=== PATIENT | female | born 1950 | race Caucasian/White ===

== ENCOUNTER 2018-02-14 20:05 | Emergency (ER) | payer MEDICARE ==
[~2018-02-14] VITALS: Ht 165.1 cm; Wt 133.8 kg
--- NOTE | 2018-02-14 21:45 | Diagnostic Imaging Report ---
KNEE LEFT THREE VIEWS HISTORY: Knee pain COMPARISON: None FINDINGS: Bones: No displaced fracture. Prominence of the medial femoral condyle margin suggests prior MCL injury Osseous alignment is within normal limits. Joints: Moderate to severe degenerative changes involving the 3 compartments with medial and femoral patellar predominance demonstrated by joint space narrowing, subchondral sclerosis and marginal osteophyte formation Soft tissues: The soft tissues appear unremarkable. IMPRESSION: 1. Tricompartmental degenerative joint disease. 2. No acute osseous abnormalities Signed by: Dr. Ranjan Velazquez M.D. on 02/14/2018 9:41 PM
[2018-02-14 22:08] VITALS: BP 162/84
== END 2018-02-14 22:23 | disposition home or self-care (01) ==
LOC: ER 20:05
DX: S83.412A Sprain of medial collateral ligament of left knee, initial encounter (principal); M25.462 Effusion, left knee; X50.1XXA Overexertion from prolonged static or awkward postures, initial encounter; Y92.008 Other place in unspecified non-institutional (private) residence as the place of occurrence of the external cause; I10 Essential (primary) hypertension; K21.9 Gastro-esophageal reflux disease without esophagitis
CPT/HCPCS: 99283

== ENCOUNTER 2018-05-29 17:21 | Emergency (ER) | payer MEDICARE ==
[~2018-05-29] VITALS: Ht 165.1 cm; Wt 133.8 kg
--- NOTE | 2018-05-29 18:22 | Diagnostic Imaging Report ---
Exam: Right foot 3 views History: Pain Comparison: None. Findings: No fracture. Hallux valgus. Joint spaces preserved. No abnormal soft tissue calcification or soft tissue defect. Impression: No acute osseous abnormality Signed by: Dr. Adilson Finney M.D. on 05/29/2018 6:19 PM
[2018-05-29] MEDS ORDERED: ULTRAM50 MG PO (18:34)
--- OUTSIDE RECORDS SUMMARY | 2018-06-04 12:49 | XMS REPORT | CCD ---
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
--- OUTSIDE RECORDS SUMMARY | 2018-06-04 12:49 | XMS REPORT | CCD ---
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
--- OUTSIDE RECORDS SUMMARY | 2018-06-04 12:49 | XMS REPORT | Summary of Care ---
Author Author [facility] [place] Organization [facility] [place] Address Unknown Phone Unavailable Encounter [employer] En[employer]tr_tiki(FIN) [id number] Date(s): 08/09/15 - 08/09/15 [facility] [place] [address] [address]- [facility] [phone] Discharge Disposition: Home Attending Physician: Marifer Barragan DO Vital Signs No data available for this section Problem List No data available for this section Allergies, Adverse Reactions, Alerts Substance Reaction Severity Status Bactrim Active Biaxin Active NKFA Active Medications No data available for this section Results No data available for this section Immunizations No data available for this section Procedures No data available for this section Social History No data available for this section Assessment and Plan No data available for this section
--- OUTSIDE RECORDS SUMMARY | 2018-06-04 12:49 | XMS REPORT | Summary of Care ---
Author Organization Unknown Address Unknown Phone Unavailable Encounter [employer] Encntr_[id number](FIN) [id number] Date(s): 02/23/15 - 02/23/[address] [address]- Discharge Disposition: Home Physician Attending: Geronimo Nguyen MD Physician Admitting: Geronimo Nguyen MD Vital Signs No data available for this [...]
--- OUTSIDE RECORDS SUMMARY | 2018-06-04 12:49 | XMS REPORT | Continuity of Care Document ---
Author Author [facility] Interface Address Unknown Phone Unavailable Problems Problem Status Onset Date Classification Date Reported Comments Source LEFT KNEE PAIN Active 08/20/2000 [facility] LEFT WRIST PAIN Active 08/20/2000 [facility] BILATERAL KNEE PAIN Active 08/20/2000 [facility] Final: Encounter for screening mammogram for malignant neoplasm of breast 03/09/2017 [facility] Hyperlipidemia, unspecified Active Problem 04/02/2018 [facility] Essential hypertension Active Problem 04/02/2018 [facility] Esophageal reflux Active Problem 04/02/2018 [facility] BMI 50.0-59.9, adult Active Problem 04/02/2018 [facility] 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 Active Problem 04/02/2018 [facility] BMI 45.0-49.9, adult Active Problem 04/02/2018 [facility] Prediabetes Active Problem 04/02/2018 [facility] Family history of colon cancer Active Problem 04/02/2018 [facility] Arthritis of both knees Active Problem 04/02/2018 [facility] OAB Active Problem 04/02/2018 [facility] Intertrigo Active Diagnosis 12/29/2016 [facility] Encounter for screening mammogram for malignant neoplasm of breast Active Diagnosis 12/29/2016 [facility] Special screening for malignant neoplasms, colon Active Diagnosis 12/29/2016 [facility] Insect bite of unspecified finger, initial encounter Active Diagnosis 03/11/2018 [facility] Bitten or stung by nonvenomous insect and other nonvenomous arthropods, initial encounter Active Diagnosis 03/11/2018 [facility] Local infection of the skin and subcutaneous tissue, unspecified Active Diagnosis 03/11/2018 [facility] Asymptomatic menopausal state Active Diagnosis 03/11/2018 [facility] Routine general medical examination at a health care facility Active Diagnosis 03/11/2018 [facility] Lower respiratory infection Active Diagnosis 11/17/2016 [facility] SOB Active Diagnosis 11/17/2016 [facility] Cough Active Diagnosis 11/17/2016 [facility] HTN Active Problem 10/13/2015 [facility] GERD Active Problem 10/13/2015 [facility] OAB Active Problem 10/13/2015 [facility] Knee pain Active Diagnosis 06/07/2013 [facility] Family hx of colon cancer Active Problem 10/13/2015 [facility] Routine general medical examination at a health care facility Active Diagnosis 09/03/2014 [facility] Morbid obesity Active Problem 10/13/2015 [facility] Adult body mass index 50.0-59.9 Active Problem 10/13/2015 [facility] Hyperlipidemia Active Problem 10/13/2015 [facility] Prediabetes Active Problem 10/13/2015 [facility] Yeast infection Active Diagnosis 10/13/2015 [facility] URI Active Diagnosis 10/08/2015 [facility] Chest pain Active Diagnosis 10/08/2015 [facility] Shingles Active Diagnosis 02/03/2016 [facility] Arthritis of knee Active Diagnosis 02/03/2016 [facility] Body aches Active Diagnosis 07/28/2016 [facility] Acute URI Active Diagnosis 07/28/2016 [facility] Medications Medication Details Route Status Patient Instructions Ordering Provider Order Date Source Keflex 1 capsule Orally Active 500 mg Orally every 12 hrs Tay Marinelli 03/05/2018 [facility] Nystatin 1 application to affected area Externally Active 495891 UNIT/GM Externally Twice a day El 12/27/2016 [facility] Tramadol HCl 1 tablet Orally Active 50 mg Orally once a day prn El 11/15/2016 [facility] Tramadol HCl as directed Orally Active 50 MG Orally once a day prn El 11/15/2016 [facility] ProAir HFA 2 puffs as needed Inhalation Active 108 (90 Base) MCG/ACT Inhalation every 4 hrs prn El 11/15/[address] [facility] Medrol (Deshawn) as directed Orally Active 4 MG Orally as directed Teri 11/15/[address] [facility] Bromfed DM 10 ml as needed Orally Active 30-2-10 MG/5ML Orally every 6 hrs prn Teri 11/15/[address] [facility] Levaquin 1 tablet Orally Active 500 MG Orally Once a day Teri 11/15/[address] [facility] Bromfed DM 10 ml as needed Orally Active 30-2-10 MG/5ML Orally every 6 hrs prn Teri 07/26/[address] [facility] Augmentin 1 tablet Orally Active 875-125 MG Orally twice a day Teri 07/26/[address] [facility] Tramadol HCl 1 tablet as needed Externally Active 50 mg Externally daily PRN [place] 04/30/[address] [facility] Valtrex 1 tablet Orally Active 1 GM Orally three times a day (tid) El 01/31/[address] [facility] Diflucan 1 tablet Orally Active 150 MG Orally Once a day [place] 10/12/[address] [facility] Bromfed DM 10 ml as needed Orally Active 30-2-10 MG/5ML Orally every 6 hrs [facility] 10/05/[address] [facility] Vitamin D (Ergocalciferol) 1 capsule by mouth Active 11585 UNIT by mouth once per week El 09/14/[address] [facility] Atenolol 1 tablet Orally Active 50MG Orally Once a day Tay Marinelli [facility] Omeprazole 1 capsule by mouth Active 40MG by mouth once a day Tay Marinelli [facility] Myrbetriq 1 tablet Orally Active 50 MG Orally as needed (prn) El [facility] Aspirin 1 tablet Orally Active 81 MG Orally Once a day El [facility] Oxybutynin Chloride ER as directed Orally Active 15 MG Orally twice a day (bid) El [facility] Apple Aj Vn-Grn Tea-Bit Or-Cr not defined Orally Active Orally Tay Marinelli [facility] Garcinia Cambogia-Chromium not defined Orally Active 500-200 MG-MCG Orally El [facility] Spironolactone-HCTZ 1 tablet Orally Active 25-25 MG Orally Once a day El [facility] Atenolol 1 tablet Orally Active 50MG Orally Once a day El [facility] Potassium 1 tablet Orally Active 99 MG Orally Once a day El [facility] Acetaminophen 1 tablet as needed NA Active 650 El [facility] Nitrofurantoin Monohyd Macro 1 capsule with food Orally Active 100 mg Orally once a day El [facility] Aleve 1 tablet as needed Orally Active 220 MG Orally every 12 hrs El [facility] Nitrofurantoin Monohyd Macro 1 capsule with food Orally Active 100 mg Orally once a day Tay Marinelli [facility] Potassium 1 tablet Orally Active 99 MG Orally Once a day Tay Marinelli [facility] Myrbetriq 1 tablet Orally Active 50 MG Orally as needed (prn) Tay Marinelli [facility] Aspirin 1 tablet Orally Active 81 MG Orally Once a day Tay Marinelli [facility] Acetaminophen 1 tablet as needed NA Active 650 Tay Marinelli [facility] Spironolactone-HCTZ 1 tablet Orally Active 25-25 MG Orally Once a day Tay Marinelli [facility] Aleve 1 tablet as needed Orally Active 220 MG Orally every 12 hrs Tay Marinelli [facility] Oxybutynin Chloride ER as directed Orally Active 15 MG Orally twice a day (bid) Tay Marinelli [facility] Garcinia Cambogia-Chromium not defined Orally Active 500-200 MG-MCG Orally Tay Marinelli [facility] Atenolol 1 tablet Orally Active 50 mg Orally Once a day El [facility] Tramadol HCl 1 tablet as needed Externally Active 50 mg Externally [facility] Omeprazole TAKE 1 CAPSULE DAILY NA Active 40MG El [facility] Myrbetriq Unknown Orally Active 50 MG Orally El [facility] Omeprazole 1 capsule Orally Active 40 mg Orally Once a day [facility] Myrbetriq 1 tablet Orally Active 50 MG Orally as needed (prn) Teri [facility] Allergies, Adverse Reactions, Alerts Substance Category Reaction Severity Reaction type Status Date Reported Comments Source penicillin Adverse Reaction Info Not Available Adverse Reaction Active 01/31/2016 [facility] Bactrim Adverse Reaction Info Not Available Adverse Reaction Active 03/05/2018 [facility] Biaxin Adverse Reaction Info Not Available Adverse Reaction Active 03/05/2018 [facility] Augmentin Adverse Reaction Info Not Available Adverse Reaction Active 03/05/2018 [facility] NKFA Assertion Drug allergy Active [facility] Immunizations Immunization Date Given Site Status Last Updated Comments Source Results Order Name Results Value Reference Range Date Interpretation Comments Source Breast Mammo Scrn [place] incl CAD MA Breast Mammo Scrn [place] incl CAD MA - BREAST MAMMO SCRN [place] INCL CAD MA BILATERAL DIGITAL SCREENING MAMMOGRAM WITH CAD: 03/06/2017 CLINICAL: Screening/Z12.31. Current study was evaluated with a Computer Aided Detection (CAD) system. Comparison is made to exams dated: 08/09/2015 mammogram - [facility] and 04/29/2010 mammogram. The tissue of both breasts is almost entirely fat. There are benign scattered calcifications in both breasts. No significant masses, calcifications, or other findings are seen in either breast. There has been no significant interval change. IMPRESSION: BENIGN There is no mammographic evidence of malignancy. A 1 year screening mammogram is recommended. Professional services are provided by the [facility]. Uvaldo ley/alfonso:03/06/2017 10:55:05 Hogshead Stripper: Laverne Hansen, [facility] This exam was dictated and interpreted by [id number] for Laly Kay. letter sent: Normal exam Mammogram BI-RADS: 2 Benign 03/06/2017 - - Read by: Uvaldo Del Toro MD Dictated Date/time: 03/06/17 10:55 Electronically Signed by: Uvaldo Del Toro MD 03/06/17 10:55 FINAL REPORT VIKKITony Sabino Digital Mammo Screening [place] MA Digital Mammo Screening [place] MA - DIGITAL MAMMO SCREENING [place] MA BILATERAL DIGITAL SCREENING MAMMOGRAM WITH CAD: 08/09/2015 CLINICAL: Routine. Current study was evaluated with a Computer Aided Detection (CAD) system. Comparison is made to exam dated: 04/29/2010 mammogram. The tissue of both breasts is almost entirely fat. There are benign scattered calcifications in both breasts. No significant masses, calcifications, or other findings are seen in either breast. There has been no significant interval change. IMPRESSION: BENIGN There is no mammographic evidence of malignancy. A 1 year screening mammogram is recommended. Manuel Trujillo M.D. cm/penrad:08/09/2015 11:28:15 Hogshead Stripper: Calista Diaz [facility] This exam was dictated and interpreted by [id number] for Sabino. letter sent: Normal exam Mammogram BI-RADS: 2 Benign 08/09/2015 - - Read by: Rocky Padilla MD Dictated Date/time: 08/09/15 11:28 Electronically Signed by: Rocky Padilla MD 08/09/15 11:28 FINAL REPORT [facility] Knee 3 Views Bilateral DX Knee 3 Views Bilateral DX Clinical history: Knee pain. Sex: F. : 1950. Technique: 3 views of the bilateral knees. Findings: Right knee: Indwelling Knee arthroplasty. Normal periprosthetic bone. There is no fracture or dislocation. No destructive lesion. Left knee: The knee joint is severely narrowed medially with apposition of subchondral cortical bone. Medial and lateral osteophyte. The patellofemoral joint is mildly narrowed with marginal osteophyte. There is no articular effusion. There is no fracture or dislocation. No destructive lesion. Impression: 1. Right knee arthroplasty. 2. Severe left knee arthrosis. 02/23/2015 - - Read by: Brody Verduzco MD Dictated Date/time: 02/23/15 14:37 Electronically Signed by: Brody Verduzco MD 02/23/15 14:38 FINAL REPORT [facility] Vital Signs Vital Sign Value Date Comments Source Weight 297 03/05/2018 [facility] Height 65 03/05/2018 [facility] Heart Rate 78 03/05/2018 [facility] Diastolic (mm Hg) 76 03/05/2018 [facility] Systolic (mm Hg) 122 03/05/2018 [facility] Weight 311 12/27/2016 [facility] Height 65 12/27/2016 [facility] Heart Rate 61 12/27/2016 [facility] Diastolic (mm Hg) 72 12/27/2016 [facility] Systolic (mm Hg) 108 12/27/2016 [facility] Weight 306 11/15/2016 [facility] Height 65 11/15/2016 [facility] Heart Rate 70 11/15/2016 [facility] Diastolic (mm Hg) 72 11/15/2016 [facility] Systolic (mm Hg) 104 11/15/2016 [facility] Weight 303 07/26/2016 [facility] Height 65 07/26/2016 [facility] Temperature Oral (F) 99.3 F 07/26/2016 [facility] Heart Rate 79 07/26/2016 [facility] Diastolic (mm Hg) 70 07/26/2016 [facility] Systolic (mm Hg) 124 07/26/2016 [facility] Weight 307 01/31/2016 [facility] Height 65 01/31/2016 [facility] Heart Rate 67 01/31/2016 [facility] Diastolic (mm Hg) 74 01/31/2016 [facility] Systolic (mm Hg) 124 01/31/2016 [facility] Weight 301 10/05/2015 [facility] Height 65 10/05/2015 [facility] Temperature Oral (F) 98.6 F 10/05/2015 [facility] Heart Rate 68 10/05/2015 [facility] Diastolic (mm Hg) 70 10/05/2015 [facility] Systolic (mm Hg) 108 10/05/2015 [facility] Weight 316.6 09/01/2014 [facility] Height 65 09/01/2014 [facility] Heart Rate 64 09/01/2014 [facility] Diastolic (mm Hg) 80 09/01/2014 [facility] Systolic (mm Hg) 132 09/01/2014 [facility] Weight 292 04/28/2013 [facility] Height 65 04/28/2013 [facility] Heart Rate 68 04/28/2013 [facility] Diastolic (mm Hg) 82 04/28/2013 [facility] Systolic (mm Hg) 126 04/28/2013 [facility] Encounters Location Location Details Encounter Type Encounter Number Reason For Visit Attending Provider ADM Date DC Date Status Source [facility] Outpatient [id number] LEFT WRIST PAIN [place] OSBORN 12/25/2011 Active [facility] [id number] LEFT KNEE PAIN [place] OSBORN 03/22/2012 Active [facility] MEDS [id number] 04/28/2013 04/28/2013 [facility] MEDS [id number] 04/28/2013 04/28/2013 [facility] MEDS [id number] 04/28/2013 04/28/2013 [facility] MEDS [id number] 04/28/2013 04/28/2013 [facility] MEDS [id number] 04/28/2013 04/28/2013 [facility] MEDS [id number] 04/28/2013 04/28/2013 [facility] MEDS [id number] 04/28/2013 04/28/2013 [facility] MEDS [id number] 04/28/2013 04/28/2013 [facility] MEDS [id number] 04/28/2013 04/28/[address] [facility] MEDS [id number] 04/28/2013 04/28/2013 [facility] MEDS [id number] 04/28/2013 04/28/2013 [facility] MEDS [id number] 04/28/2013 04/28/2013 [facility] prescription [id number] 05/05/2013 05/05/2013 [facility] prescription [id number] 05/05/2013 05/05/2013 [facility] prescription [id number] 05/05/2013 05/05/[address] [facility] prescription [id number] 05/05/2013 05/05/2013 [facility] prescription [id number] 05/05/2013 05/05/[address] [facility] prescription [id number] 05/05/2013 05/05/2013 [facility] prescription [id number] 05/05/2013 05/05/2013 [facility] prescription [id number] 05/05/2013 05/05/2013 [facility] prescription [id number] 05/05/2013 05/05/2013 [facility] prescription [id number] 05/05/2013 05/05/2013 [facility] prescription [id number] 05/05/2013 05/05/2013 [facility] prescription [id number] 05/05/2013 05/05/2013 [facility] prescription [id number] 05/05/2013 05/05/2013 [facility] Unknown [id number] 07/28/2014 07/28/2014 [facility] Unknown [id number] 07/28/2014 07/28/2014 [facility] Unknown [id number] 07/28/2014 07/28/2014 [facility] Unknown [id number] 07/28/2014 07/28/2014 [facility] Unknown [id number] 07/28/2014 07/28/2014 [facility] Unknown [id number] 07/28/2014 07/28/2014 [facility] Unknown [id number] 07/28/2014 07/28/2014 [facility] Unknown [id number] 07/28/2014 07/28/2014 [facility] Unknown [id number] 07/28/2014 07/28/2014 [facility] Unknown [id number] 07/28/2014 07/28/2014 [facility] Unknown [id number] 07/28/2014 07/28/2014 [facility] Phys/FBW [id number] 09/01/2014 09/01/2014 [facility] Phys/FBW [id number] 09/01/2014 09/01/2014 [facility] Phys/FBW [id number] 09/01/2014 09/01/2014 [facility] Phys/FB [id number] 09/01/2014 09/01/2014 [facility] Phys/FB [id number] 09/01/2014 09/01/2014 [facility] Phys/FB [id number] 09/01/2014 09/01/2014 [facility] Phys/FB [id number] 09/01/2014 09/01/2014 [facility] Phys/FB [id number] 09/01/2014 09/01/2014 [facility] Phys/FB [id number] 09/01/2014 09/01/2014 [facility] Phys/FB [id number] 09/01/2014 09/01/2014 [facility] Test Results [id number] 09/14/2014 09/14/2014 [facility] Test Results [id number] 09/14/2014 09/14/2014 [facility] Test Results [id number] 09/14/2014 09/14/2014 [facility] Test Results [id number] 09/14/2014 09/14/2014 [facility] Test Results [id number] 09/14/2014 09/14/2014 [facility] Test Results [id number] 09/14/2014 09/14/2014 [facility] Test Results [id number] 09/14/2014 09/14/2014 [facility] Test Results [id number] 09/14/2014 09/14/2014 [facility] Test Results [id number] 09/14/2014 09/14/2014 [facility] Outpatient [id number] Palmira Osborn 02/23/2015 02/24/2015 [facility] spots on legs [id number] 05/28/2015 05/28/2015 [facility] spots on legs [id number] 05/28/2015 05/28/2015 [facility] spots on legs [id number] 05/28/2015 05/28/2015 [facility] spots on legs [id number] 05/28/2015 05/28/2015 [facility] spots on legs [id number] 05/28/2015 05/28/2015 [facility] spots on legs [id number] 05/28/2015 05/28/2015 [facility] spots on legs [id number] 05/28/2015 05/28/2015 [facility] spots on legs [id number] 05/28/2015 05/28/2015 [facility] [place] Out[facility] Di[facility] [id number] Marifer CrossE[facility] 08/09/2015 08/10/2015 [facility] [place] [facility] Unknown [id number] 09/24/2015 09/24/2015 [facility] Unknown [id number] 09/24/2015 09/24/2015 [facility] Unknown [id number] 09/24/2015 09/24/2015 [facility] Unknown [id number] 09/24/2015 09/24/2015 [facility] Unknown [id number] 09/24/2015 09/24/2015 [facility] Unknown [id number] 09/24/2015 09/24/2015 [facility] Unknown [id number] 09/24/2015 09/24/2015 [facility] Unknown [id number] 09/24/2015 09/24/2015 [facility] URI [id number] 10/05/2015 10/05/2015 [facility] URI [id number] 10/05/2015 10/05/2015 [facility] URI [id number] 10/05/2015 10/05/2015 [facility] URI [id number] 10/05/2015 10/05/2015 [facility] URI [id number] 10/05/2015 10/05/2015 [facility] URI [id number] 10/05/2015 10/05/2015 [facility] URI [id number] 10/05/2015 10/05/2015 [facility] Consultation [id number] 10/12/2015 10/12/[address] [facility] Consultation [id number] 10/12/2015 10/12/2015 [facility] Consultation [id number] 10/12/2015 10/12/[address] [facility] Consultation [id number] 10/12/2015 10/12/[address] [facility] Consultation [id number] 10/12/2015 10/12/2015 [facility] [id number] 10/12/2015 10/12/2015 [facility] POSSIBLE RASH UNDER R BREAST, PAINFUL TO TOUCH, ITCHY AND A SLIGHT LUMP. [id number] 01/31/2016 01/31/2016 [facility] POSSIBLE RASH UNDER R BREAST, PAINFUL TO TOUCH, ITCHY AND A SLIGHT LUMP. [id number] 01/31/2016 01/31/2016 [facility] POSSIBLE RASH UNDER R BREAST, PAINFUL TO TOUCH, ITCHY AND A SLIGHT LUMP. [id number] 01/31/2016 01/31/2016 [facility] POSSIBLE RASH UNDER R BREAST, PAINFUL TO TOUCH, ITCHY AND A SLIGHT LUMP. [id number] 01/31/2016 01/31/2016 [facility] POSSIBLE RASH UNDER R BREAST, PAINFUL TO TOUCH, ITCHY AND A SLIGHT LUMP. [id number] 01/31/2016 01/31/[address] [facility] Unknown [id number] 02/29/2016 02/29/[address] [facility] Unknown [id number] 02/29/2016 02/29/[address] [facility] Unknown [id number] 02/29/2016 02/29/[address] [facility] Unknown [id number] 02/29/2016 02/29/[address] [facility] Sore throat, cough, body aches [id number] 07/26/2016 07/26/[address] [facility] Sore throat, cough, body aches [id number] 07/26/2016 07/26/[address] [facility] Sore throat, cough, body aches [id number] 07/26/2016 07/26/[address] [facility] Unknown [id number] 07/29/2016 07/29/[address] [facility] Unknown [id number] 07/29/2016 07/29/2016 [facility] Needs call back from Medical Staff [id number] 08/03/2016 08/03/2016 [facility] [place] Out[facility] Di[facility] [id number] Marifer Barragan 03/06/2017 03/07/2017 [facility] [place] Procedures Procedure Code Date Perfomer Comments Source
--- OUTSIDE RECORDS SUMMARY | 2018-06-04 12:49 | XMS REPORT | Summary of Care ---
Author Author [facility] [place] Organization [facility] [place] Address Unknown Phone Unavailable Encounter HQ Encntr_alibhavna(FIN) [id number] Date(s): 03/06/17 - 03/06/17 [facility] [place] [address] [id number] [phone] Final: Encounter for screening mammogram for malignant neoplasm of breast Discharge Disposition: Home or Self Care Attending Physician: Marifer Barragan DO Vital Signs [...]
--- OUTSIDE RECORDS SUMMARY | 2018-06-04 12:50 | XMS REPORT ---
Author Author Maeve Williamson [facility] eClinicalWorks Address Unknown Phone Unavailable Care Team Providers Care Angle Bender Name Role Phone Maeve Williamson Unavailable Encounters Encounter Location Date Phys/FBW [facility] Sep 01, [address] [facility] Sep 14, [address] [facility] May 28, [address] [facility] Sep 24, [address] [facility] May 05, [address] [facility] Apr 28, [address] [facility] Jul 28, 2014 POSSIBLE RASH UNDER R BREAST, PAINFUL TO TOUCH, ITCHY AND A SLIGHT LUMP. [facility] January 31, [address] [facility] Oct 05, [address] [facility] Oct 12, [address] [facility] Jul 29, 2016 Needs call back from Medical Staff [facility] Aug 03, [address] [facility] February 29, 2016 Sore throat, cough, body aches [facility] Jul 26, 2016 Problems Problem Type Condition ICD-9 Code Onset Dates Condition Status Problem Prediabetes R73.09 Active Problem Family history of colon cancer Z80.0 Active Problem OAB (overactive bladder) N32.81 Active Problem Hyperlipidemia, unspecified E78.5 Active Problem Essential hypertension I10 Active Problem Esophageal reflux K21.9 Active Social History Social History Element Qualifiers Date Reported Occupation: employed. [employer], [employer] Jul 26, 2016 children . None Jul 26, 2016 Ethnicity . Status , Is somali your primary language? Yes Jul 26, 2016 Tobacco Use: . Are you a: never smoker Jul 26, 2016 Last Colonoscopy: . 2007Jul 26, 2016 Use of recreational / street drugs? . Answer: No Jul 26, 2016 Do you have pets? . Status: No Jul 26, 2016 Where or with whom do you live ? . with spouse Jul 26, 2016 Last Bone Density: . yes Jul 26, 2016 Marital Status: . Jose L Ramirez Jul 26, 2016 Caffeine intake? . Status: Yes Jul 26, 2016 Do you exercise? . Answer: No Jul 26, 2016 Flu Vaccine: . Refuse Jul 26, 2016 Depression Screening: . negative Jul 26, 2016 Do you drink alcohol? . Status: No Jul 26, 2016 Summary Purpose eClinicalWorks Submission
--- OUTSIDE RECORDS SUMMARY | 2018-06-04 12:50 | XMS REPORT ---
Author Author Sampson Gallegos Organization eClinicalWorks Address Unknown Phone Unavailable Care Team Providers Care Medical Front Desk Coordinator Name Role Phone Sampson Gallegos CP Unavailable Allergies, Adverse Reactions, Alerts Substance Reaction Event Type penicillin Info Not Available Drug Allergy Biaxin Info Not Available Drug Allergy Bactrim Info Not Available Drug Allergy Encounters Encounter Location Date prescription [facility] May 05, [address] [facility] Apr 28, 2013 Problems Problem Type Condition ICD-9 Code Onset Dates Condition Status Problem HTN (hypertension) 401.9 Active Problem GERD (gastroesophageal reflux disease) 530.81 Active Problem OAB (overactive bladder) 596.51 Active Assessment Knee pain 719.46 Active Assessment HTN (hypertension) 401.9 Active Assessment GERD (gastroesophageal reflux disease) 530.81 Active Medications Medication Code System Code Instructions Start Date End Date Status Dosage Tramadol HCl [facility] [address]-73 50 mg Orally every 6 hrs Active 1 tablet as needed Aspirin [facility] [address]-34 81 MG Orally Once a day Active 1 tablet Nitrofurantoin Monohyd Macro [facility] [address]-97 100 mg Orally once a day Active 1 capsule with food Oxybutynin Chloride ER [facility] [address]-59 15 MG Orally twice a day (bid) Active as directed Omeprazole [facility] [address]-05 40MG Active TAKE 1 CAPSULE DAILY Aleve [facility] [address]-26 220 MG Orally every 12 hrs Active 1 tablet as needed Atenolol [facility] [address]-54 50 MG Orally Once a day Active 1 tablet Social History Social History Element Qualifiers Date Reported Ethnicity . Status , Is rwandan your primary language? Yes Apr 28, 2013 Where or with whom do you live ? . with spouse Apr 28, 2013 children . None Apr 28, 2013 Tobacco Use: . Are you a: never smoker Apr 28, 2013 Use of recreational / street drugs? . Answer: No Apr 28, 2013 Marital Status: . Jose L Ramirez Apr 28, 2013 Do you drink alcohol? . 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[employer], [employer] Apr 28, 2013 Family history Qualifier Description Comment Date Reported Maternal Grandmother brain tumor Apr 28, 2013 Paternal Grandmother Comment not available Apr 28, 2013 Siblings alive hypertension Apr 28, 2013 Maternal Grandfather aneurysm Apr 28, 2013 Father heart disease, aneurysm Apr 28, 2013 Mother multiple sclerosis, diabetes mellitus Apr 28, 2013 Paternal Grandfather heart disease, myocardial infarction Apr 28, 2013 Vital Signs Date/Time: Apr 28, 2013 Weight 292 lbs Height 65 inches Cardiac Monitoring Heart Rate 68 Beats per Minute Blood Pressure Diastolic 82 mm Hg Blood Pressure Systolic 126 mm Hg Summary Purpose eClinicalWorks Submission
--- OUTSIDE RECORDS SUMMARY | 2018-06-04 12:50 | XMS REPORT ---
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 Active Problem Arthritis of both knees M17.0 Active Problem BMI 50.0-59.9, adult Z68.43 Active Problem Family history of colon cancer Z80.0 Active Problem Essential hypertension I10 Active Problem OAB (overactive bladder) N32.81 Active Problem Prediabetes R73.09 Active Medications Medication Code System Code Instructions Start Date End Date Status Dosage Atenolol [facility] 63944443407 50MG Orally Once a day Active 1 tablet Omeprazole [facility] 00892131646 40MG by mouth daily Active 1 capsule Results No Known Results Summary Purpose eClinicalWorks Submission
--- OUTSIDE RECORDS SUMMARY | 2018-06-04 12:50 | XMS REPORT ---
Author Author Marifer Huerta [facility] eClinicalWorks Address Unknown Phone Unavailable Care Team Providers Care Turfgrass Management Professor Name Role Phone Marifer Huerta CP Unavailable Allergies No Known Allergies Problems Problem Type Condition Code Onset Dates Condition Status Problem Hyperlipidemia, unspecified E78.5 Active Problem Essential hypertension I10 Active Problem Esophageal reflux K21.9 Active Problem BMI 50.0-59.9, adult Z68.43 Active Problem 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 Z91.89 Active Problem BMI 45.0-49.9, adult Z68.42 Active Problem Prediabetes R73.09 Active Problem Family history of colon cancer Z80.0 Active Problem Arthritis of both knees M17.0 Active Problem OAB (overactive bladder) N32.81 Active Medications Medication Code System Code Instructions Start Date End Date Status Dosage Atenolol [facility] 40071401904 50MG Orally Once a day Active 1 tablet Omeprazole [facility] 99056982435 40MG by mouth once a day Active 1 capsule Results No Known Results Summary Purpose eClinicalWorks Submission
--- OUTSIDE RECORDS SUMMARY | 2018-06-04 12:50 | XMS REPORT ---
Author Author Sampson Gallegos Organization eClinicalWorks Address Unknown Phone Unavailable Care Team Providers Care Social Insurance Administrator Name Role Phone Sampson Gallegos CP Unavailable Allergies, Adverse Reactions, Alerts Substance Reaction Event Type penicillin Info Not Available Drug Allergy Biaxin Info Not Available Drug Allergy Bactrim Info Not Available Drug Allergy Encounters Encounter Location Date Phys/FBW [facility] Sep 01, 2014 prescription [facility] May 05, 2013 MEDS [facility] Apr 28, 2013 Unknown [facility] Jul 28, 2014 Problems Problem Type Condition ICD-9 Code Onset Dates Condition Status Assessment Family hx of colon cancer V16.0 Active Assessment OAB (overactive bladder) 596.51 Active Assessment HTN (hypertension) 401.9 Active Assessment Routine general medical examination at a health care facility V70.0 Active Assessment Morbid obesity 278.01 Active Assessment Influenza vaccination declined V64.06 Active Assessment GERD (gastroesophageal reflux disease) 530.81 Active Assessment Adult body mass index 50.0-59.9 V85.43 Active Social History Social History Element Qualifiers Date Reported Ethnicity . Status , Is macanese your primary language? Yes Sep 01, 2014 Where or with whom do you live ? . with spouse Sep 01, 2014 children . None Sep 01, 2014 Tobacco Use: . Are you a: never smoker Sep 01, 2014 Use of recreational / street drugs? . Answer: No Sep 01, 2014 Marital Status: . Jose L Ramirez Sep 01, 2014 Do you exercise? . Answer: No Sep 01, 2014 Do you drink alcohol? . 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
--- OUTSIDE RECORDS SUMMARY | 2018-06-04 12:50 | XMS REPORT ---
Author Author Marifer Huerta Organization eClinicalWorks Address Unknown Phone Unavailable Care Team Providers Care Prison Warden Name Role Phone Marifer Huerta Unavailable Encounters Encounter Location Date Phys/FBW [facility] Sep 01, 2014 Test Results [facility] Sep 14, 2014 spots on legs [facility] May 28, 2015 Unknown [facility] Sep 24, 2015 prescription [facility] May 05, 2013 MEDS [facility] Apr 28, 2013 Unknown [facility] Jul 28, 2014 POSSIBLE RASH UNDER R BREAST, PAINFUL TO TOUCH, ITCHY AND A SLIGHT LUMP. [facility] January 31, 2016 URI [facility] Oct 05, 2015 Consultation [facility] Oct 12, 2015 Unknown [facility] Jul 29, 2016 Unknown [facility] February 29, 2016 Sore throat, cough, body aches [facility] Jul 26, 2016 Problems Problem Type Condition ICD-9 Code Onset Dates Condition Status Problem Prediabetes R73.09 Active Problem Family history of colon cancer Z80.0 Active Problem OAB (overactive bladder) N32.81 Active Problem Hyperlipidemia, unspecified E78.5 Active Problem Essential hypertension I10 Active Problem Esophageal reflux K21.9 Active Social History Social History Element Qualifiers Date Reported 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 None Jul 26, 2016 Ethnicity . Status , Is lao your primary language? Yes Jul 26, 2016 [...] yes Jul 26, 2016 Marital Status: . oJse L Dennyjakub Ramirez Jul 26, 2016 Caffeine intake? . Status: Yes Jul 26, 2016 Do you exercise? . Answer: No Jul 26, 2016 Flu Vaccine: . Refuse Jul 26, 2016 Depression Screening: . negative Jul 26, 2016 Do you drink alcohol? . Status: No Jul 26, 2016 Summary Purpose eClinicalWorks Submission
--- OUTSIDE RECORDS SUMMARY | 2018-06-04 12:50 | XMS REPORT ---
Author Author Marifer Huerta [facility] eClinicalWorks Address Unknown Phone Unavailable Care Team Providers Care Hydrotel Operator Name Role Phone Marifer Huerta CP Unavailable [...] Instructions Start Date End Date Status Dosage Omeprazole [facility] 61050879919 40MG by mouth once a day Active 1 capsule Atenolol [facility] 35523506507 50MG Orally Once a day Active 1 tablet Results No Known Results Summary Purpose eClinicalWorks Submission
--- OUTSIDE RECORDS SUMMARY | 2018-06-04 12:50 | XMS REPORT ---
Author Author Yecenia Lambert [facility] eClinicalWorks Address Unknown Phone Unavailable Care Team Providers Care Archaeology Professor Name Role Phone Yecenia Lambert CP Unavailable Allergies, Adverse Reactions, Alerts Substance Reaction Event Type penicillin Info Not Available Drug Allergy Biaxin Info Not Available Drug Allergy Bactrim Info Not Available Drug Allergy Encounters Encounter Location Date Phys/FBW [facility] Sep 01, 2014 Test Results [facility] Sep 14, 2014 spots on legs [facility] May 28, 2015 Unknown [facility] Sep 24, 2015 prescription [facility] May 05, 2013 MEDS [facility] Apr 28, 2013 Unknown [facility] Jul 28, 2014 URI [facility] Oct 05, 2015 Problems Problem Type Condition ICD-9 Code Onset Dates Condition Status Assessment URI (upper respiratory infection) J06.9 Active Problem Hyperlipidemia 272.4 Active Assessment Chest pain R07.9 Active Problem Morbid obesity 278.01 Active Problem Family hx of colon cancer V16.0 Active Problem Adult body mass index 50.0-59.9 V85.43 Active Problem GERD (gastroesophageal reflux disease) 530.81 Active Problem Prediabetes 790.29 Active Problem OAB (overactive bladder) 596.51 Active Problem HTN (hypertension) 401.9 Active Medications Medication Code System Code Instructions Start Date End Date Status Dosage Omeprazole [facility] [address]-39 40 mg Orally Once a day Active 1 capsule Aleve [facility] [address]-31 220 MG Orally every 12 hrs Active 1 tablet as needed Atenolol [facility] [address]-91 50 mg Orally Once a day Active 1 tablet Myrbetriq [facility] [address]-38 50 MG Orally Active Unknown Aspirin [facility] [address]-34 81 MG Orally Once a day Active 1 tablet Oxybutynin Chloride ER [facility] [address]-97 15 MG Orally twice a day (bid) Active as directed Bromfed DM [facility] [address]-64 30-2-10 MG/5ML Orally every 6 hrs Oct 05, 2015 Oct 15, 2015 Active 10 ml as needed Acetaminophen [facility] [address]-28 650 Active 1 tablet as needed Tramadol HCl [facility] [address]-67 50 mg Externally Active 1 tablet as needed Nitrofurantoin Monohyd Macro [facility] [address]-32 100 mg Orally once a day Active 1 capsule with food Social History Social History Element Qualifiers Date Reported Ethnicity . Status , Is german your primary language? Yes Oct 05, 2015 children . None Oct 05, 2015 Tobacco Use: . Are you a: never smoker Oct 05, 2015 Use of recreational / street drugs? . Answer: No Oct 05, 2015 Where or with whom do you live ? . with spouse Oct 05, 2015 Do you have pets? . Status: No Oct 05, 2015 Marital Status: . Jose L Ramirez Oct 05, 2015 Caffeine intake? . Status: Yes Oct 05, 2015 Do you exercise? . Answer: No Oct 05, 2015 Do you drink alcohol? . 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, [employer] Oct 05, 2015 Family history Qualifier Description Comment Date Reported Maternal Grandmother brain tumor Oct 05, 2015 Paternal Grandmother Comment not available Oct 05, 2015 Siblings alive hypertension Oct 05, 2015 Maternal Grandfather aneurysm Oct 05, 2015 Children Comment not available Oct 05, 2015 Father heart disease, aneurysm Oct 05, 2015 Paternal Grandfather heart disease, myocardial infarction Oct 05, 2015 Mother multiple sclerosis, diabetes mellitus Oct 05, 2015 Other: Comment not available Oct 05, 2015 Vital Signs Date/Time: Oct 05, 2015 Weight 301 lbs Height 65 in Temperature 98.6 F Cardiac Monitoring Heart Rate 68 /min Blood Pressure Diastolic 70 mm Hg Blood Pressure Systolic 108 mm Hg Results [place] 1MGx4 Chest 2 views- Xray Summary Purpose eClinicalWorks Submission
--- OUTSIDE RECORDS SUMMARY | 2018-06-04 12:50 | XMS REPORT ---
Author Author Sampson Gallegos Organization eClinicalWorks Address Unknown Phone Unavailable Care Team Providers Care Skip Hoist Engineer Name Role Phone Sampson Gallegos CP Unavailable Allergies, Adverse Reactions, Alerts Substance Reaction Event Type penicillin Info Not Available Drug Allergy Biaxin Info Not Available Drug Allergy Bactrim Info Not Available Drug Allergy Encounters Encounter Location Date Phys/FBW [facility] Sep 01, 2014 Test Results [facility] Sep 14, 2014 spots on legs [facility] May 28, 2015 Unknown [facility] Sep 24, 2015 prescription [facility] May 05, 2013 MEDS [facility] Apr 28, 2013 Unknown [facility] Jul 28, 2014 POSSIBLE RASH UNDER R BREAST, PAINFUL TO TOUCH, ITCHY AND A SLIGHT LUMP. [facility] January 31, 2016 URI [facility] Oct 05, 2015 Consultation [facility] Oct 12, 2015 Problems Problem Type Condition ICD-9 Code Onset Dates Condition Status Assessment Hyperlipidemia, unspecified E78.5 Active Assessment Essential hypertension I10 Active Assessment Esophageal reflux K21.9 Active Problem Prediabetes R73.09 Active Problem Family history of colon cancer Z80.0 Active Problem OAB (overactive bladder) N32.81 Active Problem Hyperlipidemia, unspecified E78.5 Active Assessment Shingles B02.9 Active Problem Essential hypertension I10 Active Problem Esophageal reflux K21.9 Active Assessment Arthritis of knee M19.90 Active Assessment Prediabetes R73.09 Active Assessment OAB (overactive bladder) N32.81 Active Medications Medication Code System Code Instructions Start Date End Date Status Dosage Tramadol HCl [facility] [address]-34 50 mg Externally daily PRN Apr 30, 2016 Active 1 tablet as needed Aleve [facility] [address]-82 220 MG Orally every 12 hrs Active 1 tablet as needed Atenolol [facility] [address]-39 50 mg Orally Once a day Active 1 tablet Acetaminophen [facility] [address]-42 650 Active 1 tablet as needed Oxybutynin Chloride ER [facility] [address]-52 15 MG Orally twice a day (bid) Active as directed Myrbetriq [facility] [address]-62 50 MG Orally Active Unknown Aspirin [facility] [address]-90 81 MG Orally Once a day Active 1 tablet Valtrex [facility] [address]-98 1 GM Orally three times a day (tid) January 31, 2016 February 10, 2016 Active 1 tablet Omeprazole [facility] 84870157127 40MG Active TAKE 1 CAPSULE ONCE DAILY Nitrofurantoin Monohyd Macro [facility] [address]-96 100 mg Orally once a day Active 1 capsule with food Social History Social History Element Qualifiers Date Reported Ethnicity . Status , Is costa rican your primary language? Yes January 31, 2016 children . None January 31, 2016 Tobacco Use: . Are you a: never smoker January 31, 2016 Use of recreational / street drugs? . Answer: No January 31, 2016 Where or with whom do you live ? . with spouse January 31, 2016 Do you have pets? . Status: No January 31, 2016 Marital Status: . Jose L Ramirez January 31, 2016 Caffeine intake? . Status: Yes January 31, 2016 Do you exercise? . Answer: No January 31, 2016 Do you drink alcohol? . 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, [employer] January 31, 2016 Family history Qualifier Description Comment Date Reported Maternal Grandmother brain tumor January 31, 2016 Paternal Grandmother Comment not available January 31, 2016 Siblings alive hypertension January 31, 2016 Maternal Grandfather aneurysm January 31, 2016 Children Comment not available January 31, 2016 Father heart disease, aneurysm January 31, 2016 Paternal Grandfather heart disease, myocardial infarction January 31, 2016 Mother multiple sclerosis, diabetes mellitus January 31, 2016 Other: Comment not available January 31, 2016 Vital Signs Date/Time: January 31, 2016 Weight 307 lbs Height 65 in Cardiac Monitoring Heart Rate 67 /min Blood Pressure Diastolic 74 mm Hg Blood Pressure Systolic 124 mm Hg Summary Purpose eClinicalWorks Submission
--- OUTSIDE RECORDS SUMMARY | 2018-06-04 12:50 | XMS REPORT ---
Author Author Maeve Williamson [facility] eClinicalWorks Address Unknown Phone Unavailable Care Team Providers Care Alarm Investigator Name Role Phone Maeve Williamson Unavailable Allergies, Adverse Reactions, Alerts Substance Reaction Event Type Biaxin Info Not Available Drug Allergy Bactrim Info Not Available Drug Allergy Encounters Encounter Location Date Phys/FBW [facility] Sep 01, [address] [facility] Sep 14, [address] [facility] May 28, [address] [facility] Sep 24, [address] [facility] May 05, [address] [facility] February 29, [address] [facility] Apr 28, 2013 Sore throat, cough, body aches [facility] Jul 26, [address] [facility] Jul 28, 2014 POSSIBLE RASH UNDER R BREAST, PAINFUL TO TOUCH, ITCHY AND A SLIGHT LUMP. [facility] January 31, [address] [facility] Oct 05, [address] [facility] Oct 12, 2015 Problems Problem Type Condition ICD-9 Code Onset Dates Condition Status Assessment Body aches R52 Active Assessment Cough R05 Active Problem Prediabetes R73.09 Active Problem Family history of colon cancer Z80.0 Active Problem OAB (overactive bladder) N32.81 Active Problem Hyperlipidemia, unspecified E78.5 Active Assessment Acute URI J06.9 Active Problem Essential hypertension I10 Active Problem Esophageal reflux K21.9 Active Medications Medication Code System Code Instructions Start Date End Date Status Dosage Aspirin [facility] [address]-84 81 MG Orally Once a day Active 1 tablet Acetaminophen [facility] [address]-93 650 Active 1 tablet as needed Myrbetriq Unknown 0 50 MG Orally as needed (prn) Active 1 tablet Aleve [facility] [address]-90 220 MG Orally every 12 hrs Active 1 tablet as needed Atenolol [facility] 09972109754 50MG Orally Once a day Active 1 tablet Omeprazole [facility] 07006347574 40MG Active TAKE 1 CAPSULE DAILY Nitrofurantoin Monohyd Macro [facility] [address]-16 100 mg Orally once a day Active 1 capsule with food Bromfed DM [facility] [address]-41 30-2-10 MG/5ML Orally every 6 hrs prn Jul 26, 2016 Aug 05, 2016 Active 10 ml as needed Oxybutynin Chloride ER [facility] [address]-29 15 MG Orally twice a day (bid) Active as directed Augmentin [facility] [address]-38 875-125 MG Orally twice a day Jul 26, 2016 Aug 02, 2016 Active 1 tablet Social History Social History Element Qualifiers Date Reported 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 None Jul 26, 2016 Ethnicity . Status , Is lithuanian your primary language? Yes Jul 26, 2016 Tobacco Use: . Are you a: never smoker Jul 26, 2016 Last Colonoscopy: . 2008 Jul 26, 2016 Use of recreational / street [...] alcohol? . Status: No Jul 26, 2016 Vital Signs Date/Time: Jul 26, 2016 Weight 303 lbs Height 65 in Temperature 99.3 F Cardiac Monitoring Heart Rate 79 /min Blood Pressure Diastolic 70 mm Hg Blood Pressure Systolic 124 mm Hg Results [facility]U Summary Purpose eClinicalWorks Submission
--- OUTSIDE RECORDS SUMMARY | 2018-06-04 12:50 | XMS REPORT ---
Author Author Marifer Huerta [facility] eClinicalWorks Address Unknown Phone Unavailable Care Team Providers Care Post Hole Digger Name Role Phone Marifer Huerta CP Unavailable [...] Problem OAB (overactive bladder) N32.81 Active Medications No Known Medications Results No Known Results Summary Purpose eClinicalWorks Submission
--- OUTSIDE RECORDS SUMMARY | 2018-06-04 12:50 | XMS REPORT ---
Author Author Marifer Dee [facility] eClinicalWorks Address Unknown Phone Unavailable Care Team Providers Care Manager Food Beverage Name Role Phone Marifer Dee CP Unavailable Encounters Encounter Location Date prescription [facility] May 05, 2013 Problems Problem Type Condition ICD-9 Code Onset Dates Condition Status Problem HTN (hypertension) 401.9 Active Problem GERD (gastroesophageal reflux disease) 530.81 Active Problem OAB (overactive bladder) 596.51 Active Social History Social History Element Qualifiers Date Reported Ethnicity . Status , Is icelandic your primary language? Yes Apr 28, 2013 Where or with whom do you live ? . with spouse Apr 28, 2013 children . None Apr 28, 2013 Tobacco Use: . Are you a: never smoker Apr 28, 2013 Use of recreational / street drugs? . Answer: No Apr 28, 2013 Marital Status: . Jose L Botello James Apr 28, 2013 Do you drink alcohol? . 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
--- OUTSIDE RECORDS SUMMARY | 2018-06-04 12:50 | XMS REPORT ---
Author Author Maeve Williamson [facility] eClinicalWorks Address Unknown Phone Unavailable Care Team Providers Care Key Ringer Name Role Phone Maeve Williamson Unavailable Allergies, Adverse Reactions, Alerts Substance Reaction Event Type Biaxin Info Not Available Drug Allergy Bactrim Info Not Available Drug Allergy Augmentin Info Not Available Drug Allergy Problems Problem Type Condition Code Onset Dates Condition Status Assessment Esophageal reflux K21.9 Active Assessment Arthritis of both knees M17.0 Active Assessment Essential hypertension I10 Active Problem OAB (overactive bladder) N32.81 Active Problem Prediabetes R73.09 Active Problem Arthritis of both knees M17.0 Active Problem Esophageal reflux K21.9 Active Problem Hyperlipidemia, unspecified E78.5 Active Problem Family history of colon cancer Z80.0 Active Problem Essential hypertension I10 Active Assessment Lower respiratory infection J22 Active Assessment SOB (shortness of breath) R06.02 Active Assessment Cough R05 Active Medications Medication Code System Code Instructions Start Date End Date Status Dosage Nitrofurantoin Monohyd Macro [facility] [address]-86 100 mg Orally once a day Active 1 capsule with food Potassium [facility] [address]-94 99 MG Orally Once a day Active 1 tablet ProAir HFA [facility] [address]-88 108 (90 Base) MCG/ACT Inhalation every 4 hrs prn November 15, 2016 Active 2 puffs as needed Medrol (Deshawn) NDC 0 4 MG Orally as directed November 15, 2016 November 21, 2016 Active as directed Bromfed DM [facility] [address]-92 30-2-10 MG/5ML Orally every 6 hrs prn November 15, 2016 November 25, 2016 Active 10 ml as needed Atenolol ND 46808717613 50MG Orally Once a day Active 1 tablet Acetaminophen [facility] [address]-74 650 Active 1 tablet as [place] [address]-33 25-25 MG Orally Once a day Active 1 tablet Myrbetriq NDC 0 50 MG Orally as needed (prn) Active 1 tablet Tramadol HCl [facility] [address]-95 50 MG Orally once a day prn November 15, 2016 February 13, 2017 Active as directed Apple Aj Vn-Grn Tea-Bit Or-Cr NDC 0 Orally Active not defined Garcinia Cambogia-Chromium [facility] 95195-17044 500-200 MG-MCG Orally Active not defined Levaquin [facility] [address]-39 500 MG Orally Once a day November 15, 2016 November 22, 2016 Active 1 tablet Aspirin [facility] [address]-00 81 MG Orally Once a day Active 1 tablet Oxybutynin Chloride ER [facility] [address]-62 15 MG Orally twice a day (bid) Active as directed Omeprazole [facility] 78238916108 40MG Active TAKE 1 CAPSULE DAILY Aleve [facility] [address]-75 220 MG Orally every 12 hrs Active 1 tablet as needed Vital Signs Date/Time: November 15, 2016 BMI 50.92 Index Weight 306 lbs Height 65 in Cardiac Monitoring Heart Rate 70 /min Blood Pressure Diastolic 72 mm Hg Blood Pressure Systolic 104 mm Hg Results Name Result Date Reference Range Unit Abnormality Flag Chest 2 views- Xray CBC ----MCHC 32.1 20161115 ----MCH 29.3 20161115 ----Platelets 286 20161115 ----RDW 12.2 20161115 ----NEUTROPHILS mid-0.7,gra-6.7 20161115 ----Hematocrit 49.5 20161115 ----MCV 91.2 20161115 ----RBC 5.43 20161115 ----Hemoglobin 15.9 20161115 ----WBC 9.3 20161115 Summary Purpose eClinicalWorks Submission
--- OUTSIDE RECORDS SUMMARY | 2018-06-04 12:50 | XMS REPORT ---
Author Sampson Dickey Organization eClinicalWorks Address Unknown Phone Unavailable Care Team Providers Care Staff Home Therapy Rn Name Role Phone Sampson Gallegos CP Unavailable Encounters Encounter Location Date Phys/FBW [facility] Sep 01, 2014 Test Results [facility] Sep 14, 2014 spots on legs [facility] May 28, 2015 Unknown [facility] Sep 24, 2015 prescription [facility] May 05, 2013 Unknown [facility] February 29, 2016 MEDS [facility] Apr 28, 2013 Unknown [facility] Jul 28, 2014 POSSIBLE RASH UNDER R BREAST, PAINFUL TO TOUCH, ITCHY AND A SLIGHT LUMP. [facility] January 31, 2016 URI [facility] Oct 05, 2015 Consultation [facility] Oct 12, 2015 Problems Problem Type Condition ICD-9 Code Onset Dates Condition Status Problem Prediabetes R73.09 Active Problem Family history of colon cancer Z80.0 Active Problem OAB (overactive bladder) N32.81 Active Problem Hyperlipidemia, unspecified E78.5 Active Problem Essential hypertension I10 Active Problem Esophageal reflux K21.9 Active Medications Medication Code System Code Instructions Start Date End Date Status Dosage Atenolol [facility] [address]-00 50 mg Orally Once a day Active 1 tablet Social History Social History Element Qualifiers Date Reported Ethnicity . Status , Is kosovan your primary language? 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
--- OUTSIDE RECORDS SUMMARY | 2018-06-04 12:50 | XMS REPORT ---
Author Sampson Dickey Organization eClinicalWorks Address Unknown Phone Unavailable Care Team Providers Care Sciences Dean Name Role Phone Sampson Gallegos CP Unavailable Allergies, Adverse Reactions, Alerts Substance Reaction Event Type Biaxin Info Not Available Drug Allergy Bactrim Info Not Available Drug Allergy Augmentin Info Not Available Drug Allergy Problems Problem Type Condition Code Onset Dates Condition Status Assessment Encounter for routine gynecological examination Z01.419 Active Problem Esophageal reflux K21.9 Active Problem Hyperlipidemia, unspecified E78.5 Active Problem BMI 50.0-59.9, adult Z68.43 Active Assessment Intertrigo L30.4 Active Problem Arthritis of both knees M17.0 Active Problem History of ALONRDA exposure in utero Z91.89 Active Problem Family history of colon cancer Z80.0 Active Problem Essential hypertension I10 Active Problem OAB (overactive bladder) N32.81 Active Problem Prediabetes R73.09 Active Assessment 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 Z91.89 Active Assessment Encounter for screening mammogram for malignant neoplasm of breast Z12.31 Active Assessment Esophageal reflux K21.9 Active Assessment BMI 50.0-59.9, adult Z68.43 Active Assessment Prediabetes R73.09 Active Assessment Hyperlipidemia, unspecified E78.5 Active Assessment Special screening for malignant neoplasms, colon Z12.11 Active Assessment Essential hypertension I10 Active Assessment Family history of colon cancer Z80.0 Active Assessment OAB (overactive bladder) N32.81 Active Medications Medication Code System Code Instructions Start Date End Date Status Dosage Tramadol HCl [facility] [address]-92 50 MG Orally once a day prn November 15, 2016 February 13, 2017 Active as directed Myrbetriq NDC 0 50 MG Orally as needed (prn) Active 1 tablet ProAir HFA [facility] [address]-82 108 (90 Base) MCG/ACT Inhalation every 4 hrs prn November 15, 2016 Active 2 puffs as needed Aspirin [facility] [address]-76 81 MG Orally Once a day Active 1 tablet Omeprazole [facility] 60540099774 40MG Active take 1 capsule daily Oxybutynin Chloride ER [facility] [address]-60 15 MG Orally twice a day (bid) Active as directed Apple Aj Vn-Grn Tea-Bit Or-Cr NDC 0 Orally Active not defined Garcinia Cambogia-Chromium [facility] 83316-01750 500-200 MG-MCG Orally Active not defined Spironolactone-HCTZ [facility] [address]-52 25-25 MG Orally Once a day Active 1 tablet Atenolol [facility] 20228546492 50MG Orally Once a day Active 1 tablet Potassium [facility] [address]-15 99 MG Orally Once a day Active 1 tablet Acetaminophen [facility] [address]-25 650 Active 1 tablet as needed Nystatin [facility] [address]-92 155746 UNIT/GM Externally Twice a day December 27, 2016 Apr 26, 2017 Active 1 application to affected area Nitrofurantoin Monohyd Macro [facility] [address]-18 100 mg Orally once a day Active 1 capsule with food Aleve [facility] [address]-40 220 MG Orally every 12 hrs Active 1 tablet as needed Vital Signs Date/Time: December 27, 2016 BMI 51.75 Index Weight 311 lbs Height 65 in Cardiac Monitoring Heart Rate 61 /min Blood Pressure Diastolic 72 mm Hg Blood Pressure Systolic 108 mm Hg Results Name Result Date Reference Range Unit Abnormality Flag HEMOCCULT CARD Summary Purpose eClinicalWorks Submission
--- OUTSIDE RECORDS SUMMARY | 2018-06-04 12:50 | XMS REPORT ---
Author Author Marifer Dee [facility] eClinicalWorks Address Unknown Phone Unavailable Care Team Providers Care Construction Superintendent Name Role Phone Marifer Dee CP Unavailable Encounters Encounter Location Date prescription [facility] [...] Active Problem OAB (overactive bladder) 596.51 Active Medications Medication Code System Code Instructions Start Date End Date Status Dosage Atenolol MEDISPAN [address]-45 50 mg Orally Once a day Active 1 tablet Social History Social History Element Qualifiers Date Reported Ethnicity . Status , Is macanese your primary language? Yes Apr 28, 2013 Where or with whom do you live ? . with spouse Apr 28, 2013 children . None Apr 28, 2013 Tobacco Use: . Are you a: never smoker Apr 28, 2013 Use of recreational / street drugs? . Answer: No Apr 28, 2013 Marital Status: . Jose L Ayan James Apr 28, 2013 Do you drink alcohol? . Status: No Apr 28, 2013 Occupation: employed. [employer] Apr 28, 2013 Summary Purpose eClinicalWorks Submission
--- OUTSIDE RECORDS SUMMARY | 2018-06-04 12:50 | XMS REPORT ---
Author Author Marifer Huerta [facility] eClinicalWorks Address Unknown Phone Unavailable Care Team Providers Care Calciner Operator Helper Name Role Phone Marifer Huerta CP Unavailable Allergies, Adverse Reactions, Alerts Substance Reaction Event Type Biaxin Info Not Available Drug Allergy Bactrim Info Not Available Drug Allergy Augmentin Info Not Available Drug Allergy Problems Problem Type Condition Code Onset Dates Condition Status Problem Hyperlipidemia, unspecified E78.5 Active Problem Essential hypertension I10 Active Problem Esophageal reflux K21.9 Active Problem BMI 50.0-59.9, adult Z68.43 Active Assessment Insect bite (nonvenomous) of unspecified finger, initial encounter S60.469A Active Problem 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 Active Problem BMI 45.0-49.9, adult Z68.42 Active Problem Prediabetes R73.09 Active Problem Family history of colon cancer Z80.0 Active Problem Arthritis of both knees M17.0 Active Problem OAB (overactive bladder) N32.81 Active Assessment BMI 45.0-49.9, adult Z68.42 Active Assessment OAB (overactive bladder) N32.81 Active Assessment Bitten or stung by nonvenomous insect and other nonvenomous arthropods, initial encounter W57.XXXA Active Assessment Local infection of the skin and subcutaneous tissue, unspecified L08.9 Active Assessment Screening for malignant neoplasm of breast Z12.39 Active Assessment Hyperlipidemia, unspecified E78.5 Active Assessment Asymptomatic menopausal state Z78.0 Active Assessment Essential hypertension I10 Active Assessment Prediabetes R73.09 Active Assessment Routine general medical examination at a health care facility Z00.00 Active Medications Medication Code System Code Instructions Start Date End Date Status Dosage Nitrofurantoin Monohyd Macro NDC 59778401011 100 mg Orally once a day Active 1 capsule with food Potassium NDC 40046122728 99 MG Orally Once a day Active 1 tablet Myrbetriq NDC 00744697556 50 MG Orally as needed (prn) Active 1 tablet Aspirin NDC 14358188991 81 MG Orally Once a day Active 1 tablet Omeprazole ND 99794342106 40MG by mouth daily Active 1 capsule Acetaminophen ND 75701101004 650 Active 1 tablet as needed Apple Aj Vn-Grn Tea-Bit Or-Cr NDC 0 Orally Active not defined Spironolactone-HCTZ ND 51962646016 25-25 MG Orally Once a day Active 1 tablet Aleve ND 39063458636 220 MG Orally every 12 hrs Active 1 tablet as needed Oxybutynin Chloride ER ND 69455099348 15 MG Orally twice a day (bid) Active as directed Garcinia Cambogia-Chrom[facility] 85961383300 500-200 MG-MCG Orally Active not defined Atenolol [facility] 83540923351 50MG Orally Once a day Active 1 tablet Keflex ND 87322414952 500 mg Orally every 12 hrs March 05, 2018 March 15, 2018 Active 1 capsule Vital Signs Date/Time: March 05, 2018 BMI 49.42 Index Weight 297 lbs Height 65 in Cardiac Monitoring Heart Rate 78 /min Blood Pressure Diastolic 76 mm Hg Blood Pressure Systolic 122 mm Hg Results No Known Results Summary Purpose eClinicalWorks Submission
--- OUTSIDE RECORDS SUMMARY | 2018-06-04 12:50 | XMS REPORT ---
Author Sampson Dickey Organization eClinicalWorks Address Unknown Phone Unavailable Care Team Providers Care Mapping Analyst Name Role Phone Sampson Gallegos CP Unavailable Encounters Encounter Location Date Phys/FBW [facility] Sep 01, 2014 Test Results [facility] Sep 14, 2014 spots on legs [facility] May 28, 2015 Unknown [facility] Sep 24, 2015 prescription [facility] May 05, 2013 MEDS [facility] Apr 28, 2013 Unknown [facility] Jul 28, 2014 Problems Problem Type Condition ICD-9 Code Onset Dates Condition Status Problem Hyperlipidemia 272.4 Active Assessment HTN (hypertension) 401.9 Active Problem Morbid obesity 278.01 Active Problem Family hx of colon cancer V16.0 Active Problem Adult body mass index 50.0-59.9 V85.43 Active Problem GERD (gastroesophageal reflux disease) 530.81 Active Problem Prediabetes 790.29 Active Problem OAB (overactive bladder) 596.51 Active Problem HTN (hypertension) 401.9 Active Medications Medication Code System Code Instructions Start Date End Date Status Dosage Atenolol MEDISPAN [address]-94 50 mg Orally Once a day Active 1 tablet Social History Social History Element Qualifiers Date Reported Ethnicity . Status , Is swedish your primary language? Yes May 28, 2015 children . None May 28, 2015 Tobacco Use: . Are you a: never smoker May 28, 2015 Use of recreational / street drugs? . Answer: No May 28, 2015 Where or with whom do you live ? . with spouse May 28, 2015 Do you have pets? . Status: No May 28, 2015 Marital Status: . Jose L Ramirez May 28, 2015 Caffeine intake? . Status: Yes May 28, 2015 Do you exercise? . Answer: No May 28, 2015 Do you drink alcohol? . 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
--- OUTSIDE RECORDS SUMMARY | 2018-06-04 12:50 | XMS REPORT ---
[facility] Address Unknown Phone Unavailable Care Team Providers Care Cnc Mill Set Up Operator Name Role Phone Pete BELLAMY Unavailable Unavailable Guy GONZALEZ Unavailable Unavailable Problems This patient has no known problems. Allergies, Adverse Reactions, Alerts This patient has no known allergies or adverse reactions. Medications This patient has no known medications. Results Test Description Test Time Test Comments Text Results Atomic Results Result Comments FOOT RIGHT COMPLETE 2018-05-31 20:49:00 [facility] [address] [place], [place] [address] Patient Name: ELAYNE ONEAL MR #: [id number] : 1950 Age/Sex: 67/F Req #: [id number] Adm Physician: Ordered by: RUPINDER PEREZ FREELANCE GRAPHIC DESIGNER Report #: [id number] Location: ER Room/Bed: Procedure: [id number] DX/FOOT RIGHT COMPLETE Exam Date: Exam Time: REPORT STATUS: Signed RIGHT FOOT - 3 VIEWS RIGHT ANKLE - 3 VIEWS HISTORY: Sprained ankle, popped COMPARISON: Right foot radiographs May 29, 2018 FINDINGS: Bones: No acute displaced fracture. Mild hallux valgus deformity. Joints: Scattered degenerative changes, most notably moderate of the dorsal aspect of the first tarsometatarsal joint. Soft tissues: The soft tissues appear unremarkable. IMPRESSION: 1. No acute radiographic abnormality. 2. No significant interval change. Signed by: Bashir PalaciosOJessica, M.M.MJessica on 05/31/2018 8:52 PM Dictated By: TIM PIÑA DO 51 Transcribed By: IFEOMA on 05/31/182051 COPY TO: RUPINDER PEREZ NP ANKLE 3 + VIEWS RIGHT 2018-05-31 20:49:00 [place] [address] Patient Name: ELAYNE ONEAL MR #: [id number] : 1950 Age/Sex: 67/F Req #: [id number] Adm Physician: Ordered by: RUPINDER PEREZ NP Report #: [id number] Location: ER Room/Bed: Procedure: [id number] DX/ANKLE 3 + VIEWS RIGHT Exam Date: Exam Time: REPORT STATUS: Signed RIGHT FOOT - 3 VIEWS RIGHT ANKLE - 3 VIEWS HISTORY: Sprained ankle, popped COMPARISON: Right foot radiographs May 29, 2018 FINDINGS: Bones: No acute displaced fracture. Mild hallux valgus deformity. Joints: Scattered degenerative changes, most notably moderate of the dorsal aspect of the first tarsometatarsal joint. Soft tissues: The soft tissues appear unremarkable. IMPRESSION: 1. No acute radiographic abnormality. 2. No significant interval change. Signed by: Dr. Tim Piña D.O., M.M.M. on 05/31/2018 8:52 PM Dictated By: TIM PIÑA DO 51 Transcribed By: IFEOMA on 05/31/182051 COPY TO: RUPINDER PEREZ FREELANCE GRAPHIC DESIGNER FOOT RIGHT COMPLETE 2018-05-29 18:15:00 [place] [address] Patient Name: ELAYNE ONEAL MR #: [id number] : 1950 Age/Sex: 67/F Req #: [id number] Adm Physician: Ordered by: SHARON GONZALEZ MD Report #: [id number] Location: ER Room/Bed: Procedure: [id number] DX/FOOT RIGHT COMPLETE Exam Date: 05/29/18 Exam Time: 1753 REPORT STATUS: Signed Exam: Right foot 3 views History: Pain Comparison: None. Findings: No fracture. Hallux valgus. Joint spaces preserved. No abnormal soft tissue calcification or soft tissue defect. Impression: No acute osseous abnormality Signed by: Dr. Gosia Spence M.D. on 05/29/2018 6:19 PM Dictated By: GOSIA SPENCE MD 18 Transcribed By: IFEOMA on 05/29/181818 COPY TO: SHARON GONZALEZ MD KNEE LEFT THREE VIEWS 2018-02-14 21:30:[address] [address] Patient Name: ELAYNE ONEAL MR #: [id number] : 1950 Age/Sex: 67/F Req #: [id number] Adm Physician: Ordered by: CAROLE BELLAMY MD Report #: [id number] Location: ER Room/Bed: Procedure: [id number] DX/KNEE LEFT THREE VIEWS Exam Date: 02/14/18 Exam Time: 2044 REPORT STATUS: Signed KNEE LEFT THREE VIEWS HISTORY: Knee pain COMPARISON: None FINDINGS: Bones: No displaced fracture. Prominence of the medial femoral condyle margin suggests prior MCL injury Osseous alignment is within normal limits. Joints: Moderate to severe degenerative changes involving the 3 compartments with medial and femoral patellar predominance demonstrated by joint space narrowing, subchondral sc lerosis and marginal osteophyte formation Soft tissues: The soft tissues appear unremarkable. IMPRESSION: 1. Tricompartmental degenerative joint disease. 2. No acute osseous abnormalities Signed by: Dr. Ranjan Velazquez M.D. on 02/14/2018 9:41 PM Dictated By: RANJAN KANG MD 40 Transcribed By: IFEOMA on 02/14/182140 COPY TO: CAROLE BELLAMY MD
--- OUTSIDE RECORDS SUMMARY | 2018-06-04 12:50 | XMS REPORT ---
Author Author Yecenia Lambert [facility] eClinicalWorks Address Unknown Phone Unavailable Care Team Providers Care Sap Bw Developer Name Role Phone Yecenia Lambert Unavailable Encounters Encounter Location Date Phys/FBW [facility] Sep 01, 2014 Test Results [facility] Sep 14, 2014 spots on legs [facility] May 28, 2015 Unknown [facility] Sep 24, 2015 prescription [facility] May 05, 2013 MEDS [facility] Apr 28, 2013 Unknown [facility] Jul 28, 2014 URI [facility] Oct 05, 2015 Consultation [facility] Oct 12, 2015 Problems Problem Type Condition ICD-9 Code Onset Dates Condition Status Problem Hyperlipidemia 272.4 Active Assessment Yeast infection B37.9 Active Problem Morbid obesity 278.01 Active Problem Family hx of colon cancer V16.0 Active Problem Adult body mass index 50.0-59.9 V85.43 Active Problem GERD (gastroesophageal reflux disease) 530.81 Active Problem Prediabetes 790.29 Active Problem OAB (overactive bladder) 596.51 Active Problem HTN (hypertension) 401.9 Active Medications Medication Code System Code Instructions Start Date End Date Status Dosage Acetaminophen [facility] [address]-20 650 Active 1 tablet as needed Myrbetriq [facility] [address]-61 50 MG Orally Active Unknown Bromfed DM [facility] [address]-36 30-2-10 MG/5ML Orally every 6 hrs Oct 05, 2015 Oct 15, 2015 Active 10 ml as needed Omeprazole [facility] 40176283284 40MG Active TAKE 1 CAPSULE ONCE DAILY Tramadol HCl [facility] [address]-08 50 mg Externally Active 1 tablet as needed Aspirin [facility] [address]-19 81 MG Orally Once a day Active 1 tablet Nitrofurantoin Monohyd Macro [facility] [address]-60 100 mg Orally once a day Active 1 capsule with food O[facility]ynin [facility] [address]-31 15 MG Orally twice a day (bid) Active as directed [facility]an [facility] [address]-94 150 MG Orally Once a day Oct 12, 2015 Oct 13, 2015 Active 1 tablet Aleve MEDISPAN [address]-64 220 MG Orally every 12 hrs Active 1 tablet as needed [facility] [address]-02 50 mg Orally Once a day Active 1 tablet Social History Social History Element Qualifiers Date Reported Ethnicity . Status , Is greenlandic your primary language? 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
--- OUTSIDE RECORDS SUMMARY | 2018-06-04 12:50 | XMS REPORT ---
Author Author Sampson Gallegos Organization eClinicalWorks Address Unknown Phone Unavailable Care Team Providers Care Watch Adjuster Name Role Phone Sampson Gallegos CP Unavailable Encounters Encounter Location Date Phys/FBW [facility] Sep 01, 2014 Test Results [facility] Sep 14, 2014 prescription [facility] May 05, 2013 MEDS [facility] Apr 28, 2013 Unknown [facility] Jul 28, 2014 Problems Problem Type Condition ICD-9 Code Onset Dates Condition Status Problem Hyperlipidemia 272.4 Active Problem Morbid obesity 278.01 Active Problem Family hx of colon cancer V16.0 Active Problem Adult body mass index 50.0-59.9 V85.43 Active Problem GERD (gastroesophageal reflux disease) 530.81 Active Problem Prediabetes 790.29 Active Problem OAB (overactive bladder) 596.51 Active Problem HTN (hypertension) 401.9 Active Medications Medication Code System Code Instructions Start Date End Date Status Dosage Vitamin D (Ergocalciferol) [facility] [address]-88 8[address] UNIT by mouth once per week Sep 14, 2014 December 07, 2014 Active 1 capsule Social History Social History Element Qualifiers Date Reported Ethnicity . Status , Is pakistani your primary language? Yes Sep 01, 2014 Where or with whom do you live ? . with spouse Sep 01, 2014 children . None Sep 01, 2014 Tobacco Use: . Are you a: never smoker Sep 01, 2014 Use of recreational / street drugs? . Answer: No Sep 01, 2014 Marital Status: . Jose L Botello James Sep 01, 2014 Do you exercise? . Answer: No Sep 01, 2014 Do you drink alcohol? . 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
--- OUTSIDE RECORDS SUMMARY | 2018-06-04 12:50 | XMS REPORT ---
Author Sampson Dickey Organization eClinicalWorks Address Unknown Phone Unavailable Care Team Providers Care Head Waiter/Waitress Banquet Name Role Phone Sampson Gallegos CP Unavailable Allergies No Known Allergies Problems Problem Type Condition Code Onset Dates Condition Status Assessment Arthritis of both knees M17.0 Active Problem [...] Date End Date Status Dosage Tramadol HCl [facility] 01313762823 50 mg Orally once a day prn November 15, 2016 Oct 03, 2017 Active 1 tablet Results No Known Results Summary Purpose eClinicalWorks Submission
== END 2018-05-29 19:44 | disposition home or self-care (01) ==
LOC: ER 17:21
DX: M25.571 Pain in right ankle and joints of right foot (principal); X50.1XXA Overexertion from prolonged static or awkward postures, initial encounter; Y92.019 Unspecified place in single-family (private) house as the place of occurrence of the external cause
CPT/HCPCS: 99283

== ENCOUNTER 2018-05-31 19:44 | Emergency (ER) | payer MEDICARE ==
[~2018-05-31] VITALS: Ht 165.1 cm; Wt 133.8 kg
[~2018-05-31 19:44] MED LIST: ULTRAM50 MG PO
[2018-05-31] MEDS ORDERED: HYDROCODONE/APAP 7.5MG-325MG 1 EA TAB PO PRN (20:00)
--- NOTE | 2018-05-31 20:55 | Diagnostic Imaging Report ---
RIGHT FOOT - 3 VIEWS RIGHT ANKLE - 3 VIEWS HISTORY: Sprained ankle, popped COMPARISON: Right foot radiographs May 29, 2018 FINDINGS: Bones: No acute displaced fracture. Mild hallux valgus deformity. Joints: Scattered degenerative changes, most notably moderate of the dorsal aspect of the first tarsometatarsal joint. Soft tissues: The soft tissues appear unremarkable. IMPRESSION: 1. No acute radiographic abnormality. 2. No significant interval change. Signed by: Dr. Maurice Piña D.O., M.M.M. on 05/31/2018 8:52 PM
== END 2018-05-31 21:13 | disposition home or self-care (01) ==
LOC: ER 19:44
DX: S93.401A Sprain of unspecified ligament of right ankle, initial encounter (principal); S93.601A Unspecified sprain of right foot, initial encounter; X50.1XXA Overexertion from prolonged static or awkward postures, initial encounter; Y92.008 Other place in unspecified non-institutional (private) residence as the place of occurrence of the external cause
CPT/HCPCS: 99283

== ENCOUNTER 2018-06-04 20:20 | Emergency (ER) | payer MEDICARE ==
[~2018-06-04] VITALS: Ht 165.1 cm; Wt 133.8 kg
[2018-06-04] MEDS ORDERED: HYDROCODONE/APAP 7.5MG-325MG 1 EA TAB PO PRN (20:45)
--- NOTE | 2018-06-04 21:44 | Diagnostic Imaging Report ---
FOOT AND ANKLE RIGHT COMPLETE HISTORY: Pain COMPARISON: None FINDINGS: Bones: No displaced fracture. Osseous alignment is within normal limits. Joints: Degenerative changes of the midfoot predominantly involving the first and second tarsometatarsal joints Soft tissues: Mild diffuse soft tissue edema around the ankle IMPRESSION: No acute radiographic abnormality. Signed by: Dr. Ranjan Velazquez M.D. on 06/04/2018 9:41 PM
== END 2018-06-04 22:51 | disposition home or self-care (01) ==
LOC: ER 20:20
DX: S93.601A Unspecified sprain of right foot, initial encounter (principal); X50.1XXA Overexertion from prolonged static or awkward postures, initial encounter; Y92.008 Other place in unspecified non-institutional (private) residence as the place of occurrence of the external cause
CPT/HCPCS: 99283